=== PATIENT | male | born 1965 | race Caucasian/White ===

== ENCOUNTER 2024-04-28 08:02 | Outpatient (REF) | payer BC, SELFPAY | END 2024-04-28 08:03 | disposition home or self-care (01) | LOC: HO.BBR 08:02 | PROVIDERS: PCP Family Medicine; Visit Provider Internal Medicine Hematology | DX: Z13.89 Encounter for screening for other disorder (principal) ==

== ENCOUNTER 2024-05-06 08:09 | Outpatient (REF) | payer BC, SELFPAY | END 2024-05-06 08:10 | disposition home or self-care (01) | LOC: HO.BBR 08:09 | PROVIDERS: PCP Family Medicine; Visit Provider Internal Medicine Hematology | DX: Z13.89 Encounter for screening for other disorder (principal) ==

== ENCOUNTER 2024-05-13 09:02 | Outpatient (REF) | payer BC, SELFPAY | END 2024-05-13 09:03 | disposition home or self-care (01) | LOC: HO.BBR 09:02 | PROVIDERS: PCP Family Medicine; Visit Provider Internal Medicine Hematology | DX: Z13.89 Encounter for screening for other disorder (principal) ==

== ENCOUNTER 2024-05-20 08:11 | Outpatient (REF) | payer BC, SELFPAY | END 2024-05-20 08:12 | disposition home or self-care (01) | LOC: HO.BBR 08:11 | PROVIDERS: PCP Family Medicine; Visit Provider Internal Medicine Hematology | DX: Z13.89 Encounter for screening for other disorder (principal) ==

== ENCOUNTER 2024-05-28 08:03 | Outpatient (REF) | payer BC, SELFPAY | END 2024-05-28 08:04 | disposition home or self-care (01) | LOC: HO.BBR 08:03 | PROVIDERS: PCP Family Medicine; Visit Provider Internal Medicine Hematology | DX: Z13.89 Encounter for screening for other disorder (principal) ==

== ENCOUNTER 2024-06-04 08:58 | Outpatient (REF) | payer BC, SELFPAY | END 2024-06-04 08:59 | disposition home or self-care (01) | LOC: HO.BBR 08:58 | PROVIDERS: PCP Family Medicine; Visit Provider Internal Medicine Hematology | DX: Z13.89 Encounter for screening for other disorder (principal) ==

== ENCOUNTER 2024-06-11 07:59 | Outpatient (REF) | payer BC, SELFPAY | END 2024-06-11 08:00 | disposition home or self-care (01) | LOC: HO.BBR 07:59 | PROVIDERS: PCP Family Medicine; Visit Provider Internal Medicine Hematology | DX: Z13.89 Encounter for screening for other disorder (principal) ==

== ENCOUNTER 2024-06-18 10:00 | Outpatient (REF) | payer BC, SELFPAY | END 2024-06-18 10:01 | disposition home or self-care (01) | LOC: HO.BBR 10:00 | PROVIDERS: PCP Family Medicine; Visit Provider Internal Medicine Hematology | DX: Z13.89 Encounter for screening for other disorder (principal) ==

== ENCOUNTER 2024-06-25 09:02 | Outpatient (REF) | payer BC, SELFPAY | END 2024-06-25 09:03 | disposition home or self-care (01) | LOC: HO.BBR 09:02 | PROVIDERS: PCP Family Medicine; Visit Provider Internal Medicine Hematology | DX: Z13.89 Encounter for screening for other disorder (principal) ==

== ENCOUNTER 2024-07-06 08:13 | Outpatient (REF) | payer BC, SELFPAY | END 2024-07-06 08:14 | disposition home or self-care (01) | LOC: HO.BBR 08:13 | PROVIDERS: PCP Family Medicine; Visit Provider Internal Medicine Hematology | DX: Z13.89 Encounter for screening for other disorder (principal) ==

== ENCOUNTER 2024-07-16 09:00 | Outpatient (REF) | payer BC, SELFPAY | END 2024-07-16 09:01 | disposition home or self-care (01) | LOC: HO.BBR 09:00 | PROVIDERS: PCP Family Medicine; Visit Provider Internal Medicine Hematology | DX: Z13.89 Encounter for screening for other disorder (principal) ==

== ENCOUNTER 2025-01-24 08:58 | Outpatient (REF) | payer OTHER, SELFPAY | END 2025-01-24 08:59 | disposition home or self-care (01) | LOC: HO.BBR 08:58 | PROVIDERS: PCP Family Medicine; Visit Provider Internal Medicine Hematology | DX: Z13.89 Encounter for screening for other disorder (principal) ==

== ENCOUNTER 2025-02-21 08:00 | Outpatient (REF) | payer OTHER, SELFPAY ==
--- OUTSIDE RECORDS SUMMARY | 2025-02-21 08:04 | XMS_ITS | Encounter Summary ---
Author Organization [facility] Address [address] [place] [address] Phone Care Team Providers Care Pipe Bender Name Role Phone Chicho Cary MD Primary Care Provider + [phone] Chicho Cary MD Unavailable [phone] Lorri Fontenot Primary Care Provider + [phone] Lorri Fontenot Unavailable [phone] Chicho Cary MD Primary Care Provider + [phone] Encounter Details Date Type Department Care Team (Late st Contact Info) Description 04/21/2024 Procedure Pass [facility], [address] [address] Social History Tobacco Use Types Packs/Day Years Used Date Smoking Tobacco: Former Cigarettes 0.3 2 0 09/15/1982 - 09/15/1984 Smokeless Tobacco: Never Alcohol Use Standard Drinks/Week Comments Not Currently 3 (1 standard drink = 0.6 oz pur e alcohol) Child or Family Care Answer Date Record ed Do you have problems with on e of the following making it difficult for you to work, study, or receive health care? No 10/01/2022 Education Answer Date Recorded Are you interested in help w ith more adult education (for example, completing high school, GED, job training, learning the Moldovan language, technical skills, or developing parenting skills)? No 10/01/2022 Food Answer Date Recorded Within the past 6 months we worried whether our food would run out before we got money to buy more. Never True 10/01/2022 Within the past 6 months the food we bought just didn't last and we didn't have enough money to get more. Never True Residential Stability Answer Date Recor ded What is your housing situation today? I have keisha black 10/01/2022 How many times have you move d in the past 12 months? Zero (I did not move) 10/01/2022 Paying for Meds Answer Date Recorded Do you have trouble paying for medicines? No 10/01/2022 Paying Utility Bills Answer Date Record ed Do you have trouble paying your heating or elect ricity bill? No 10/01/2022 Transportation Answer Date Recorded Has the lack of transportati on kept you from medical appointments or from getting medications? No 10/01/2022 Unemployment Answer Date Recorded Are you currently unemployed or working on a part-time or temporary basis, and looking for work? No 10/01/2022 Digital Access Answer Date Recorded No 12/28/2022 No 12/28/2022 Reliable internet access at home? Not on file 12/28/2022 Device with a working camera? Not on file Sex and Gender Information Value Date Recorded Sex Assigned at Male 09/11/2023 6:53 AM EST Legal Sex Male 9:38 PM EDT Gender Identity Male 09/11/2023 6:53 AM EST Sexual Orientation Straight 09/11/2023 6: 53 AM EST documented as of this encounter Last Filed Vital Signs Vital Sign Reading Time Taken Comments Blood Pressure - - Pulse - - Temperature - - Respiratory Rate - - Oxygen Saturation - - Inhaled Oxygen Concentration - - Weight 118.8 kg (262 lb) 04/22/2024 2:14 PM EDT Height 182.9 cm (6') 04/22/2024 2:14 PM EDT Body Mass Index 35.53 04/22/2024 2:14 PM EDT documented in this encounter Plan of Treatment Upcoming Encounters Date Type Department Care Team (Late st Contact Info) Description 03/07/2025 2:00 PM EDT Office Visit [facility] [address] [place] [address] 3rd Floor, [address] [place] [address] Harry Zhong MD, MS 22 [facility], [address] [place] [address] 04/15/2025 8:00 AM EDT Office Visit [facility] at [address] [address] Lorri Fontenot MBBS [address] [place] [address] 06/17/2025 9:00 AM EST Office Visit [address] [address] Chicho Cary MD [address] [place] [address], [address] [place] [address] documented as of this encounter Visit Diagnoses Not on filedocumented in this encounter Additional Health Concerns Assessment Noted Time PHQ-2 Depression Total Score: 0 10/01/19 23 7:59 AM EST documented as of this encounter Care Teams Pipe Bender Relationship Specialty Start Date End Date Chicho Cary MD [address] [place] [address], [address] [address] PCP - General 05/22/17 06/28/24 Lorri Fontenot MBBS [address] [place] [address] PCP - General Medical Oncology 06/29/24 08/25/24 Chicho Cary MD [address] [place] [address], [address] [place] [address] PCP - General Family Medicine 09/03/24 Chicho Cary MD [address] [place] [address], [address] [place] [address] [email or web address] Insurance Assigned Provider 01/10/24 Lorri Fontenot MBBS [address] [place] [address] [email or web address] Primary Oncologist Medical Oncology 08/26/24 documented as of this encounter Additional Source Comments The information contained in this document represents components of the legal health record. It is not the complete legal health record.[facility]
== END 2025-02-21 08:01 | disposition home or self-care (01) ==
LOC: HO.BBR 08:00
PROVIDERS: PCP Family Medicine; Visit Provider Internal Medicine Hematology
DX: Z13.89 Encounter for screening for other disorder (principal)

== ENCOUNTER 2025-03-31 07:57 | Outpatient (REF) | payer OTHER, SELFPAY ==
--- OUTSIDE RECORDS SUMMARY | 2025-03-31 08:02 | XMS_ITS | Encounter Summary ---
Author Organization [facility] Address [address] [facility] [address] [place] [address] Phone Care Team Providers Care Heavy Truck Mechanic Name Role Phone Chicho Cary MD Primary Care Provider + [phone] Chicho Cary MD Unavailable [phone] Lorri Fontenot Primary Care Provider [phone] Lorri Fontenot Unavailable [phone] Chicho Cary MD Primary Care Provider + [phone] Encounter Details Date Type Department Care Team (Late st Contact Info) Description 10/31/2017 Procedure Pass [facility] Admitting Dept Virtual Department [address] [place] [address] Social History Tobacco Use Types Packs/Day Years Used Date Smoking Tobacco: Former Smokeless Tobacco: Never Alcohol Use Standard Drinks/Week Comments Yes 2 (1 standard drink = 0.6 oz pur e alcohol) Sex and Gender Information Value Date Recorded Sex Assigned at Male 09/11/2023 6:53 AM EST Legal Sex Male 9:38 PM EDT Gender Identity Male 09/11/2023 6:53 AM EST Sexual Orientation Straight 09/11/2023 6: 53 AM EST documented as of this encounter Plan of Treatment Upcoming Encounters Date Type Department Care Team ([facility] Contact Info) Description 04/15/2025 8:00 AM EDT Office Visit [facility] [address] [place] [address] Lorri Fontenot MBBS [address] [place] [address] 06/17/2025 9:00 AM EST Office Visit [facility] [address] [place] [address] [place] [address] Chicho Cary MD [address] [place] [address], [address] [place] [address] 07/18/2025 3:20 PM EST Office Visit [facility] [address] [place] [address] [address] 3rd Floor, [address] [place] [address] Harry Zhong MD, MS 22 [facility], [address] [place] [address] [email or web address] documented as of this encounter Visit Diagnoses Not on filedocumented in this encounter Additional Health Concerns Infection Onset Date Last Indicated Resolved Time CoV-Risk 10/03/2020 10/10/2020 10/15/2020 1:23 AM EST CoV-Exposed Comment:Recent close contact documented in the COVID-19 PCR/PRO order 10/03/2020 10/03/2020 10/28/2020 1:22 AM E DT Assessment Noted Time PHQ-2 Depression Total Score: 0 09/03/19 18 8:12 AM EST documented as of this encounter Care Teams Heavy Truck Mechanic Relationship Specialty Start Date End Date Chicho Cary MD [address] [place] [address], [address] [place] [address] PCP - General 05/22/17 06/28/24 Lorri Fontenot MBBS [address] [place] [address] PCP - General Medical Oncology 06/29/24 08/25/24 Chicho Cary MD [address] [place] [address], [address] [place] [address] [email or web address] PCP - General Family Medicine 09/03/24 Chicho Cary MD [address] [place] [address], [address] [place] [address] [email or web address] Insurance Assigned Provider 01/10/24 Lorri Fontenot MBBS [address] [place] [address] [email or web address] Primary Oncologist Medical Oncology 08/26/24 documented as of this encounter Additional Source Comments The information contained in this document represents components of the legal health record. It is not the complete legal health record.[facility]
--- OUTSIDE RECORDS SUMMARY | 2025-03-31 08:02 | XMS_ITS | Encounter Summary ---
Author Organization [facility] Address [address] [place] [address] Phone Care Team Providers Care Gastroenterology Physician Name Role Phone Chicho Cary MD Unavailable [phone] Lorir Fontenot Primary Care Provider [phone] Lorri Fontenot Unavailable [phone] Chicho Cary MD Primary Care Provider + [phone] Encounter Details Date Type Department Care Team (Late st Contact Info) Description 06/29/2024 Transcribe Orders [facility] [address] [id number] Chicho Cary MD 22 [facility], [address] [place], [place] [id number] [email or web address] Social History Tobacco Use Types Packs/Day Years [...] work, study, or receive health care? No 06/11/2024 Education Answer Date Recorded Are you interested in help w ith more adult education (for example, completing high school, GED, job training, learning the [place]ese language, technical skills, or developing parenting skills)? No 06/11/2024 Are you concerned about learning? Not on file 06/11/2024 No 06/11/2024 Yes 06/11/2024 Food Answer Date Recorded Within the past 6 months we worried whether our food would run out before we got money to buy more. Never True 06/11/2024 Within the past 6 months the food we bought just didn't last and we didn't have enough money to get more. Never True Residential Stability Answer Date Recor ded What is your housing situation today? I have keisha black 06/11/2024 How many times have you move d in the past 12 months? Zero (I did not move) 06/11/2024 Paying for Meds Answer Date Recorded Do you have trouble paying for medicines? No 06/11/2024 Paying Utility Bills Answer Date Record ed Do you have trouble paying your heating or elect ricity bill? No 06/11/2024 Transportation Answer Date Recorded Has the lack of transportati on kept you from medical appointments or from getting medications? No 06/11/2024 Unemployment Answer Date Recorded Are you currently unemployed or working on a part-time or temporary basis, and looking for work? No 10/01/2022 Digital Access Answer Date Recorded No 06/11/2024 Yes 06/11/2024 Do you have reliable internet access at home? Ye s 06/11/2024 Do you have a device (e.g., phone, tablet, computer) with a working camera? Yes 06/11/2024 Intimate Partner Violence Answer Date R ecorded Are you denied basic needs s uch as food, clothing, or medical care? No 06/11/2024 In the past 12 months have y ou been in a relationship with a person who hurts, threatens, or tries to control you? No 06/11/2024 Are you denied basic needs s uch as food, clothing, or medical care? No 06/11/2024 In the past 12 months have y ou been in a relationship with a person who hurts, threatens, or tries to control you? No 06/11/2024 Sex and Gender Information Value Date Recorded Sex Assigned at Male 09/11/2023 6:53 AM EST Legal Sex Male 9:38 PM EDT Gender Identity Male 09/11/2023 6:53 AM EST Sexual Orientation Straight 09/11/2023 6: 53 AM EST documented as of this encounter Plan of Treatment Upcoming Encounters Date Type Department Care Team (Late st Contact Info) Description 04/15/2025 8:00 AM EDT Office Visit [facility] [place] [address] [place] [address] Lorri Fontenot MBBS [address] [place] [address] 06/17/2025 9:00 AM EST Office Visit [address] [address] Chicho Cary MD [address] [place] [address], [address] [place] [address] 07/18/2025 3:20 PM EST Office Visit [facility] [address] [place] [address] 3rd Floor, [address] [place] [address] Harry Zhong MD, MS [address] [place] [address], [address] [place] [address] [email or web address] documented as of this encounter Visit Diagnoses Not on filedocumented in this encounter Additional Health Concerns Assessment Noted Time PHQ-2 Depression Total Score: 0 06/11/20 8:53 AM EST documented as of this encounter Care Teams Gastroenterology Physician Relationship Specialty Start Date End Date Lorri Fontenot MBBS [address] [place] [address] PCP - General Medical Oncology 06/29/24 08/25/24 Chicho Cary MD [address] [place] [address], [address] [place] [address] [email or web address] PCP - General Family Medicine 09/03/24 Chicho Cary MD [address] [place] [address], [address] [place] [address] [email or web address] Insurance Assigned Provider 01/10/24 Lorri Fontenot MBBS [address] [place] [address] [email or web address] Primary Oncologist Medical Oncology 08/26/24 documented as of this encounter Additional Source Comments The information contained in this document represents components of the legal health record. It is not the complete legal health record.[facility]
--- OUTSIDE RECORDS SUMMARY | 2025-03-31 08:02 | XMS_ITS | Encounter Summary ---
Author Organization [facility] Address [address] [facility] [address] [place] [address] Phone Care Team Providers Care Cable Puller Name Role Phone Chicho Cary MD Primary Care Provider + [phone] Chicho Cary MD Unavailable [phone] Lorri Fontenot Primary Care Provider + [phone] Lorri Fontenot Unavailable [phone] Chicho Cary MD Primary Care Provider + [phone] Encounter Details Date Type Department Care Team (Late st Contact Info) Description 09/11/2023 Procedure Pass [facility], [facility] Scan - [address] [address] Social History Tobacco Use Types Packs/Day Years [...] high school, GED, job training, learning the Cuban language, technical skills, or developing parenting skills)? [...] AM EST documented as of this encounter Functional Status * Calculated C-SSRS Risk Score (Lifetime/Recent) Answer Date of Assessment Author No Risk Indicated 09/11/2023 7:45 AM EST Kimberly Harrington, CARMELA * [place] Suicide Severity Rating Scale (Screener/Recent Self-Report) Question Answer Date of Assessment Author 1. Wish to be (Past 1 Month) No 09/11/2023 7:45 AM EST Kimberly Harrington, CARMELA 2. Non-Specific Active Suici key Thoughts (Past 1 Month) No 09/11/2023 7:45 AM EST Kimberly Harrington, RN 6. Suicidal Behavior (Lifetime) No 7:45 AM EST Kimberly Harrington, RN documented as of this encounter Plan of Treatment Upcoming Encounters Date Type Department Care Team (Late st Contact Info) Description 04/15/2025 8:00 AM EDT Office Visit [facility] [address] [place] [address] Lorri Fontenot MBBS [address] [place] [address] 06/17/2025 9:00 AM EST Office Visit [facility] [address] [place] [address] Chicho Cary MD [address] [place] [address], [address] [place] [address] 07/18/2025 3:20 PM EST Office Visit [facility] [address] [place] [address] 3rd Floor, [address] [place] [address] Harry Zhong MD, MS 22 [facility], [address] [address] [email or web address] documented as of this encounter Visit Diagnoses Not on filedocumented in this encounter Additional Health Concerns Assessment Noted Time PHQ-2 Depression Total Score: 0 10/01/19 23 7:59 AM EST documented as of this encounter Care Teams Cable Puller Relationship Specialty Start Date End Date Chicho Cary MD [address] [place] [address], [address] [place] [address] PCP - General 05/22/17 06/28/24 Lorri Fontenot MBBS [address] [place] [address] PCP - General Medical Oncology 06/29/24 08/25/24 Chicho Cary MD [address] [place] [address], [address] [place] [address] [email or web address] PCP - General Family Medicine 09/03/24 Chicho Cary MD [address] [place] [address], [address] [place] [address] [email or web address] Insurance Assigned Provider 01/10/24 Lorri Fontenot MBBS [address] [place] [address] [email or web address] Primary Oncologist Medical Oncology 08/26/24 documented as of this encounter Additional Source Comments The information contained in this document represents components of the legal health record. It is not the complete legal health record.[facility]
--- OUTSIDE RECORDS SUMMARY | 2025-03-31 08:02 | XMS_ITS | Clinical Summary ---
Author Organization [facility] Address [address] [facility] [address] [place] [address] Phone Care Team Providers Care Client Onboarding Analyst Name Role Phone Chicho Cary MD Unavailable [phone] Lorri Fontenot MBBS Unavailable [phone] Chicho Cary MD Primary Care Provider [phone] Allergies No known active allergies Medications naproxen sodium (ALEVE) 220 MG tablet Take 1 tablet by mouth every 12 (twelve) hours as needed. Active cholecalciferol (VITAMIN D3) 10,000 unit tablet Take 10,000 Units by mouth daily. Active LORazepam (ATIVAN) 1 MG tablet take one tablet by mouth at bedtime as needed 30 tablet 4 Active therapeutic multivitamin tablet Take 1 tablet by mouth daily. 03/08/20 25 Discontinue d(No longer taking) tadalafiL (CIALIS) 20 MG tablet TAKE 1 TABLET (20 MG TOTAL) BY MOUTH DAILY NEEDED (ED). 10 tablet 1 5 03/26/20 25 Active Problems Problem Noted Date Diagnosed Date Iron overload 07/07/2024 Hereditary hemochromatosis 04/21/2024 Assessment & Plan (12/10/2024 9:03 AM EDT): 59-year-old male with a history of CAICEDO and moderate alcohol intake presenting with transferrin saturation of 76% and serum ferritin of 1311. These labs were confirmed on rpt. HFE testing revealed heterozygosity for C282Y and H63D. This presentation is in keeping with hereditary hemochromatosis, even though compound heterozygote's for C2 82Y-H63D have low penetrance for significant organ iron overload. Up to 2% of individuals can develop clinical evidence of iron overload, particularly with coexisting CAICEDO and moderate alcohol consumption as in this case. Phlebotomy initiated at [place] on a weekly basis 04/28/2024. Continue every 4 weeks for now. CBC and ferritin will be followed. Ferritin above goal currently at 244. Phlebotomy if ferritin > 150. Patient reminded regarding no alcohol Patient aware of no iron supplements, no vitamin C supplementation and no raw seafood - he must check MVI for any iron MRI of the liver for iron quantification - mild to moderate iron overload present. Will review patient in 4 months. If stable at that time, 6 month appts Aim for ferritin of150 long-term; he was initially phlebotomized to a ferritin of approximately 50, can now aim for about 150 Hepatology review 10/2024 by GI services - CAICEDO Patient has informed family members of diagnosis so they may initiate their own testing. There is no family history of hemochromatosis Assessment & Plan (09/03/2024 8:55 AM EST): 58-year-old male with a history of CAICEDO and moderate alcohol intake presenting with transferrin saturation of 76% and serum ferritin of 1311. These labs were confirmed on rpt. HFE testing revealed heterozygosity for C282Y and H63D. This presentation is in keeping with hereditary hemochromatosis, even though compound heterozygote's for C2 82Y-H63D have low penetrance for significant organ iron overload. Up to 2% of individuals can develop clinical evidence of iron overload, particularly with coexisting CAICEDO and moderate alcohol consumption as in this case. Phlebotomy initiated at [place] on a weekly basis 04/28/2024. Will now transition to every 4 weeks. CBC and ferritin will be followed. Repeat labs ordered today Patient reminded regarding no alcohol Patient aware of no iron supplements, no vitamin C supplementation and no raw seafood - he must check MVI for any iron MRI of the liver for iron quantification - mild to moderate iron overload present. Will review patient in 3 months Aim for ferritin of150 long-term; he was initially phlebotomized to a ferritin of approximately 50, can now aim for about 150 Hepatology review previously requested - this is to clarify whether any further testing is needed such as a fibroscan. Order fibroscan if still not seen by hepatology by next visit. Patient has informed family members of diagnosis so they may initiate their own testing. There is no family history of hemochromatosis Assessment & Plan (07/07/2024 9:52 AM EST): 58-year-old male with a history of CAICEDO and moderate alcohol intake presenting with transferrin saturation of 76% and serum ferritin of 1311. These labs were confirmed on rpt. HFE testing revealed heterozygosity for C282Y and H63D. This presentation is in keeping with hereditary hemochromatosis, even though compound heterozygote's for C2 82Y-H63D have low penetrance for significant organ iron overload. Up to 2% of individuals can develop clinical evidence of iron overload, particularly with coexisting CAICEDO and moderate alcohol consumption as in this case. Phlebotomy initiated at [place] on a weekly basis 04/28/2024. Will now transition to every 2 weeks. CBC and ferritin will be followed. Repeat labs ordered today Patient reminded regarding no alcohol Patient aware of no iron supplements, no vitamin C supplementation and no raw seafood MRI of the liver for iron quantification - mild to moderate iron overload present. Will review patient in 6 weeks Aim for ferritin of 50-150 long-term; will initially phlebotomize to a ferritin of approximately 50 Hepatology review requested - this is to clarify whether any further testing is needed such as a fibroscan. Patient has informed family members of diagnosis so they may initiate their own testing. There is no family history of hemochromatosis Assessment & Plan (05/19/2024 8:42 AM EDT): 58-year-old male with a history of CAICEDO and moderate alcohol intake presenting with transferrin saturation of 76% and serum ferritin of 1311. These labs were confirmed on rpt. HFE testing revealed heterozygosity for C282Y and H63D. This presentation is in keeping with hereditary hemochromatosis, even though compound heterozygote's for C2 82Y-H63D have low penetrance for significant organ iron overload. Up to 2% of individuals can develop clinical evidence of iron overload, particularly with coexisting CAICEDO and moderate alcohol consumption as in this case. Phlebotomy initiated at [place] on a weekly basis 04/28/2024. CBC and ferritin will be followed. Repeat labs ordered today Patient reminded regarding no alcohol Patient aware of no iron supplements, no vitamin C supplementation and no raw seafood MRI of the liver for iron quantification - mild to moderate iron overload present. Will review patient in 6 weeks Aim for ferritin of 50-150 long-term; will initially phlebotomize to a ferritin of approximately 50 Hepatology review requested - this is to clarify whether any further testing is needed such as a fibroscan. Patient has informed family members of diagnosis so they may initiate their own testing. There is no family history of hemochromatosis Assessment & Plan (04/21/2024 10:12 AM EDT): 58-year-old male with a history of Caicedo and moderate alcohol intake presenting with transferrin saturation of 76% and serum ferritin of 1311. HFE testing revealed heterozygosity for C282Y and H63D. This presentation is in keeping with hereditary hemochromatosis, even though compound heterozygote's for C2 82Y-H63D have low penetrance for significant organ iron overload. To 2% of individuals can develop clinical evidence of iron overload, particularly with coexisting CAICEDO and moderate alcohol consumption as in this case. With ferritin greater then 1000, phlebotomy will be initiated immediately on a weekly basis. CBC and ferritin will be followed. Repeat labs ordered today Patient instructed to discontinue all alcohol Patient aware of no iron supplements, no vitamin C supplementation and no raw seafood MRI of the liver for iron quantification requested Will review patient in 1 month with results Aim for ferritin of 50-150 long-term; will initially phlebotomize to a ferritin of approximately 50 May need hepatology review; will discuss at next visit Patient has informed family members of diagnosis so they may initiate their own testing. There is no family history of hemochromatosis Elevated ferritin 03/25/2024 Low vitamin D level 03/21/2024 Acute pain of right shoulder 03/17/2024 Assessment & Plan (03/17/2024 2:46 PM EDT): Chronic shoulder pain with limited range of motion, particularly in overhead and twisting movements. History of previous shoulder injuries. Physical examination suggests possible impingement or rotator cuff strain, but no signs of significant arthritis or large rotator cuff tear. -Refer to physical therapy for evaluation and strengthening exercises once patient has PT picked out. -Provide patient with home exercises to try, with instructions to stop if they cause significant pain. -Consider orthopedic consultation and possible imaging if no improvement with physical therapy. Decreased sensation of foot 03/17/2024 Assessment & Plan (03/17/2024 2:47 PM EDT): Patient reports decreased sensation in feet, particularly noticeable at night. No numbness or tingling. No significant findings on physical examination. -Order metabolic panel, A1c, B12 to rule out diabetes or other metabolic causes. -Advise patient to continue physical activity and consider compression stockings for possible circulatory issues. 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 Acknowledges slow weight loss despite diet and exercise efforts. -Discuss potential benefits and limitations of weight loss medications, including possible need for long-term use. -Consider prescribing weight loss medication if patient continues to struggle with weight loss, pt will follow up with PCP to discuss further. Encounters Date Type Department Care Team Description 03/07/2025 2:00 PM EDT Office Visit [facility] [address] [place] [address] 3rd Floor, [address] [place] [address] Harry Zhong MD, MS Sleep apnea, unspecified type (Primary Dx); Snoring; Daytime somnolence; Obesity (BMI 30-39.9); Family history of sleep apnea 02/22/[address] [facility] at [address] [address] ProviderScot MD 01/25/2025 Refill [facility] [address] [place] [address] [place] [address] Chicho Cary MD Medication Refill 01/25/[address] [facility] at [address] [place] [address] Provider, MD Scot from Last 3 Months Immunizations Immunization Administration Dates Next Due COVID-19 (Pre-05/26) Pfizer Vaccine, mRNA, PF Td, unspecified formulation 05/06/2010 Tdap 09/15/2020 Family History Medical History Relation Comments Diabetes mellitus Father Lymphoma Maternal Grandfather [place]kins Snoring Maternal Grandmother Sleep apnea Maternal Uncle Snoring Mother Relation Status Comments Father Maternal Grandfather Maternal Grandmother Maternal Uncle Alive Mother Social History Tobacco Use Types Packs/Day Years Used Date Smoking Tobacco: Former Cigarettes 0.5 2 0 09/15/1982 - 09/15/1984 Smokeless Tobacco: Never Alcohol Use Standard Drinks/Week Comments Not Currently 4 (1 standard drink = 0.6 oz pur [...] high school, GED, job training, learning the American language, technical skills, or developing parenting skills)? [...] your housing situation today? I have keisha sing 06/11/2024 How many times have you move [...] Orientation Straight 09/11/2023 6: 53 AM EST Last Filed Vital Signs Vital Sign Reading Time Taken Comments Blood Pressure 112/80 03/07/2025 2:11 PM EDT Pulse 79 03/07/2025 2:11 PM EDT Temperature 36.5 C (97.7 F) 12/10/2024 8:25 AM EDT Respiratory Rate 18 09/11/2023 10:01 AM EST Oxygen Saturation 95% 03/07/2025 2:11 PM EDT Inhaled Oxygen Concentration - - Weight 121.6 kg (268 lb) 03/07/2025 2:11 PM EDT Height 182.5 cm (5' 11.85 ) 03/07/2025 2:11 PM E DT Body Mass Index 36.5 03/07/2025 2:11 PM EDT Plan of Treatment Upcoming Encounters Date Type Department Care Team (Late st Contact Info) Description 04/15/2025 8:00 AM EDT Office Visit [facility] at [address] [address] Lorri Fontenot MBBS [address] [place] [address] 06/17/2025 9:00 AM EST Office Visit [facility] Medicine [address] [place] [address] [place] [address] Chicho Cary MD [address] [facility], [address] [place] [address] 07/18/2025 3:20 PM EST Office Visit [facility] [address] Floor, [address] [place] [address] Harry Zhong MD, MS [address] [facility], [address] [place] [address] Health Maintenance Due Date Last Done Comments COLOGUARD 2012 FIT TEST 2012 FOBT 2012 SIGMOIDOSCOPY 2012 VIRTUAL COLONOSCOPY 2012 PNEUMOCOCCAL VACCINES (50+ years) (1 of 1 - PCV) 2017 ZOSTER VACCINES (1 of 2) 2017 COVID-19 VACCINE ( season) 2024 03/09/2022, 07/08/2021, 11/25/2020, Additional history exists DEPRESSION SCREENING 06/11/2025 06/11/2024 SCREENING FOR DIABETES 12/07/2027 12/06/2024, 2023 COLONOSCOPY 05/19/2028 05/19/2023, 10/31/2017 COLORECTAL CANCER SCREENING 05/19/2028 LIPID PANEL 12/06/2029 12/06/2024, 09/05, 09/21/2021, Additional history exists Adult Td,Tdap Booster 09/15/2030 09/15/2020, 010 HIV ONE-TIME SCREENING (18-65 YEARS) Completed 09/15/2020 HEPATITIS C SCREENING Completed 05/19/2024, 021 SMOKING STATUS SCREENING (Once After 26 Yrs) Completed 03/08/2025 HEPATITIS A VACCINES Aged Out No long er eligible based on patient's age to complete this topic HIB VACCINES Aged Out No longer eligi ble based on patient's age to complete this topic MENINGOCOCCAL VACCINES (ACWY) Aged Out No longer eligible based on patient's age to complete this topic MENINGOCOCCAL VACCINES (B) Aged Out N o longer eligible based on patient's age to complete this topic Medical Devices Not on file Procedures Procedure Name Priority Date/Time Associated Diagnosis Comments OUTSIDE LAB Routine 02/22/2025 11:24 AM EDT OUTSIDE LAB Routine 01/25/2025 2:30 PM EDT LIPID PANEL Routine 12/06/2024 12:09 PM EDT Mixed hyperlipidemia HEPATITIS C ANTIBODY, QUALITATIVE Routine 05/19/2024 8:48 AM EDT Elevated ferritin Hereditary hemochromatosis ENDOSCOPY, COLON 05/19/2023 10:5 7 AM EDT from Last 3 Months or Most Recently Relevant to Health Maintenance Results * Outside Lab (02/22/2025 11:24 AM EDT) Only the most recent of2 resultswithin the time period is included. us Historical Provider LAB BLOOD ORDERABLES Rina l Result * (ABNORMAL) Lipid panel (12/06/2024 12:09 PM EDT) HDL 63 mg/dL [facility] Comment: Interpretation <40 mg/dL: Low HDL cholesterol (major risk factor for CHD) Greater than or equal to 60 mg/dL: High HDL cholesterol ( negative risk factor for CHD) HDL - cholesterol is affected by a number of factors, e.g. smoking, excerise, hormones, sex and age. CHOLESTEROL 214 0 - 240 mg/dL [facility] TRIGLYCERIDES 318(H) 30 - 160 mg/dL [facility] LDL 87 50 - 129 mg/dL [facility] Comment: LDL levels in terms of risk for coronary heart disease: <100 mg/dL: Optimal 100-129 mg/dL: Near or above optimal 130-159 mg/dL: Borderline high 160-189 mg/dL: High >190 mg/dL: Very High CARDIAC RISK RATIO 3.4 3.4 - 5.0 C [facility] Blood 12/06/2024 12:0 9 PM EDT 12/06/2024 12:15 PM EDT us Chicho Cary MD LAB BLOOD ORDERABLES Final Result Performing Organization Address City/[facility]/ZIP Co de Phone Number [address] [address] * Hepatitis C antibody, qualitative (05/19/2024 8:48 AM EDT) HCV NON-REACTIV E NON-REACTI VE [facility] Blood 05/19/2024 8:48 AM EDT 05/19/2024 9:05 AM EDT us Lorri ALBARADO LAB BLOOD ORDERABLES Final R esult Performing Organization Address [facility]/ZIP Co de Phone Number [address] [address] * ENDOSCOPY, COLON (05/19/2023 10:57 AM EDT) Narrative Transcriptions Kelly Diego MD - 05/19/2023 10:57 AM EDT [facility] Patient Name: Fito Watts MD:: KELLY DIEGO MD, Procedure Date: 05/19/2023 10:57AM Date of : 1965 Age: 57 Admit Type: Outpatient Gender: Male Room: [facility] 05 Referring MD: CHICHO CARY MD Exam Type: Colonoscopy Indications: Surveillance: Personal history of adenomatouspolyps on last colonoscopy > 5 years ago, Lastcolonoscopy: October 2017 Medications: Monitored Anesthesia Care Procedure: Informed consent was obtained from the patientafter discussion of the indications, limitations, alternatives, benefits, and risks of the procedure. Risks specifically discussed include but are not limited to medication reactions, missed lesions, bleeding, perforation, or the need for emergent surgery. Throughout the procedure, the patient's blood pressure, pulse, end-tidal CO2, and oxygensaturations were monitored continuously. The Colonoscope was introduced through the anus and advanced to the terminal ileum, with identificationof the appendiceal orifice and IC valve. Thecolonoscopy was performed without difficulty. The patient tolerated the procedure fairly well. The quality of the bowel preparation was good. The ileocecalvalve, appendiceal orifice, and rectum werephotographed. Complications: No immediate complications. Estimated blood loss: Minimal. Findings: The perianal and digital rectal examinations were normal. Pertinent negatives include normalsphincter tone. Three sessile polyps were found at 65 cm proximalto the anus and at 110 cm proximal to the anus. The polyps were 4 to 6 mm in size. These polyps were removed with a cold snare. Resection and retrieval were complete. Estimated blood loss was minimal. A few small-mouthed diverticula were found in the sigmoid colon and ascending colon. Retroflexion in the right colon was performed. The exam was otherwise without abnormality ondirect and retroflexion views. Impression: - Three 4 to 6 mm polyps at 65 cm proximal to theanus and at 110 cm proximal to the anus, removed with a cold snare. Resected and retrieved. - Diverticulosis in the sigmoid colon and in the ascending colon. Recommendation: - I will send results of your biopsy to you andyour referring physician or provider. If you do notreceive notification within 3 weeks, please call ouroffice. - Repeat colonoscopy in 5 years for surveillance of multiple polyps. KELLY DIEGO MD 05/19/2023 11:22:53 AM This report has been signed electronically. Number of Addenda: 0 Note Initiated On: 05/19/2023 10:57 AM Procedure Code(s): --- Professional --- 59449, Colonoscopy, flexible; with removal of tumor(s), polyp(s), or other lesion(s) by snare technique --- Technical --- 70939, Colonoscopy, flexible; with removal of tumor(s), polyp(s), or other lesion(s) by snare technique Diagnosis Code(s): --- Professional --- Z86.010, Personal history of colonic polyps D12.6, Benign neoplasm of colon, unspecified K57.30, Diverticulosis of large intestine without perforation or abscess without bleeding --- Technical --- Z86.010, Personal history of colonic polyps D12.6, Benign neoplasm of colon, unspecified K57.30, Diverticulosis of large intestine without perforation or abscess without bleeding CPT copyright 2021 [employer]. All rights reserved. The codes documented in this report are preliminary and upon manager adult reviewmay be revised to meet current compliance requirements. Procedure Date: 05/19/2023 10:57:[address] [place] [address] Chicho Cary MD GI PROCEDURE ORDERABLES Fi nal Result from Last 3 Months or Most Recently Relevant to Health Maintenance Insurance AETNA HMO POS EPO AETNA O POS EPO [facility] AETNA O POS EPO [facility] POS EPO [facility] POS EPO Care Teams Client Onboarding Analyst Relationship Specialty Start Date End Date Chicho Cary MD [address] [place] [address], [address] [place] [address] PCP - General Family Medicine 09/03/24 Chicho Cary MD [address] [place] [address], [address] [place] [address] Insurance Assigned Provider 01/10/24 Lorri Fontenot MBBS [address] [place] [address] Primary Oncologist Medical Oncology 08/26/24 Additional Source Comments The information contained in this document represents components of the legal health record. It is not the complete legal health record.[facility]
--- OUTSIDE RECORDS SUMMARY | 2025-03-31 08:02 | XMS_ITS | Encounter Summary ---
Author Organization [facility] Address [address] [facility] [address] [place] [address] Phone Care Team Providers Care Computer Equipment Installer Name Role Phone Chicho Cary MD Primary Care Provider + [phone] Chicho Cary MD Unavailable [phone] Lorri Fontenot Primary Care Provider [phone] Lorri Fontenot Unavailable [phone] Chicho Cary MD Primary Care Provider + [phone] Encounter Details Date Type Department Care Team (Late st Contact Info) Description 04/21/2024 Procedure Pass [facility], [address] [address] Social History Tobacco Use Types Packs/Day Years [...] high school, GED, job training, learning the Spanish language, technical skills, or developing parenting skills)? [...] Description 04/15/2025 8:00 AM EDT Office Visit [facility] at [address] [address] Lorri Fontenot MBBS [address] [place] [address] 06/17/2025 9:00 AM EST Office Visit [facility] [address] [place] [address] [place] [address] Chicho Cary MD [address] [place] [address], [address] [place] [address] 07/18/2025 3:20 PM EST Office Visit [facility] [address] [place] [address] [address] Floor, [address] [place] [address] Harry Zhong MD, MS [address] [place] [address], [address] [place] [address] [email or web address] documented as of this encounter Visit Diagnoses Not on filedocumented in this encounter Additional Health Concerns Assessment Noted Time PHQ-2 Depression Total Score: 0 10/01/19 23 7:59 AM EST documented as of this encounter Care Teams Computer Equipment Installer Relationship Specialty Start Date End Date Chicho Cary MD [address] [place] [address], [address] [place] [address] PCP - General 05/22/17 06/28/24 Lorri Fontenot MBBS [address] [place] [address] PCP - General Medical Oncology 06/29/24 08/25/24 Chicho Cary MD [address] [place] [address], [address] [place] [address] PCP - General Family Medicine 09/03/24 Chicho Cary MD [address] [place] [address], [address] [place] [address] [email or web address] Insurance Assigned Provider 01/10/24 Lorri Fontenot MBBS [address] [place] [id number] [email or web address] Primary Oncologist Medical Oncology 08/26/24 documented as of this encounter Additional Source Comments The information contained in this document represents components of the legal health record. It is not the complete legal health record.[facility]
--- OUTSIDE RECORDS SUMMARY | 2025-03-31 08:02 | XMS_ITS | Encounter Summary ---
Author Organization [facility] Address [address] [place] [phone] Phone Care Team Providers Care Exterior Designer Name Role Phone Chicho Cary MD Primary Care Provider + [phone] Chicho Cary MD Unavailable [phone] Lorri Fontenot Primary Care Provider [phone] Lorri Fontenot Unavailable [phone] Chicho Cary MD Primary Care Provider + [phone] Encounter Details Date Type Department Care Team (Late st Contact Info) Description 05/19/2023 Procedure Pass [facility] Endoscopy Admitting Dept Virtual Department [address] [place] [address] Social History Tobacco Use Types Packs/Day Years [...] high school, GED, job training, learning the [place] language, technical skills, or developing parenting skills)? [...] Description 04/15/2025 8:00 AM EDT Office Visit [facility] at [address] [address] Lorri Fontenot MBBS [address] [place] [address] 06/17/2025 9:00 AM EST Office Visit [facility] [address] [place] [address] [place] [address] Chicho Cary MD [address], [address] [place] [address] 07/18/2025 3:20 PM EST Office Visit [facility] [address], [address] [place] [address] Harry Zhong MD, MS [address], [address] [place] [address] documented as of this encounter Visit Diagnoses Not on filedocumented in this encounter Additional Health Concerns Assessment Noted Time PHQ-2 Depression Total Score: 0 10/01/19 23 7:59 AM EST documented as of this encounter Care Teams Exterior Designer Relationship Specialty Start Date End Date Chicho Cary MD [address] [place] [address], [address] [place] [address] PCP - General 05/22/17 06/28/24 Lorri Fontenot MBBS [address] [address] PCP - General Medical Oncology 06/29/24 08/25/24 Chicho Cary MD [address] [place] [address], [address] [place] [address] PCP - General Family Medicine 09/03/24 Chicho Cary MD [address] [place] [address], [address] [place] [address] Insurance Assigned Provider 01/10/24 Lorri Fontenot MBBS [address] [phone] (work) [email or web address] Primary Oncologist Medical Oncology 08/26/24 documented as of this encounter Additional Source Comments The information contained in this document represents components of the legal health record. It is not the complete legal health record.[facility]
== END 2025-03-31 07:58 | disposition home or self-care (01) ==
LOC: HO.BBR 07:57
PROVIDERS: PCP Family Medicine; Visit Provider Internal Medicine Hematology
DX: Z13.89 Encounter for screening for other disorder (principal)